=== PATIENT | female | born 1975 | race Caucasian/White ===

== ENCOUNTER 2016-10-23 15:27 | Emergency (ER) | payer MEDICAID, OTHER ==
[~2016-10-23] VITALS: Ht 162.6 cm; Wt 69.8 kg
[~2016-10-23 15:27] MED LIST: MECL-62 PO; MECL25CH PO
[2016-10-23 15:38] VITALS: BP 120/58; PULSE 73; RESP 16; TEMP 98; O2SAT 99
--- NOTE | 2016-10-23 15:49 | PD ---
HPI Chief Complaint: Musculoskeletal Complaint Time Seen by Provider: 15:40 Travel History International Travel<30 days: No Contact w/Intl Traveler<30days: No Traveled to known affect area: No History of Present Illness HPI 41-year-old left-hand dominant female presents for evaluation of left elbow pain. She first noticed it a month ago. It is an aching pain on the lateral aspect of left elbow which is worse with dorsiflexion of the left wrist, worse when lifting things. 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 She also does some weightlifting she denies any trauma. She has no other complaints at this time. History Social History Alcohol Use: Yes (OCC) Tobacco Use: No Allergies-Medications (Allergen,Severity, Reaction): Coded Allergies: Aspirin (Verified Allergy, Severe, Rash, 10/23/16) Latex (Verified Allergy, Severe, SKIN EXCORIATION, 10/23/16) Sulfa (Verified Allergy, Mild, Rash, 10/23/16) Reported Meds & Prescriptions Reported Meds & Active Scripts Active Meclizine Hcl (Meclizine HCl) 25 Mg Chw 25 Mg PO Q6H PRN Reported Meclizine Hcl (Meclizine HCl) 25 Mg Tab 25 Mg PO TID Review of Systems Musculoskeletal: Positive: Pain Neurologic: No: Paresthesia Physical Exam Narrative GENERAL: Well-developed well-nourished female in no acute distress SKIN: Warm and dry. No bruising or soft tissue swelling Extremities: Palpation lateral epicondyle left elbow. Pain with dorsiflexion against resistance at the lateral left epicondyle. There is no joint effusion. There is no bony deformity. The patient maintains full range of motion. Data Data Last Documented VS Vital Signs Date Time Temp Pulse Resp B/P Pulse Ox O2 Delivery O2 Flow Rate FiO2 10/23/16 15:38 98.0 73 16 120/58 99 MDM Medical Screen Exam Complete: Yes Emergency Medical Condition: No Narrative Course The patient's history and examination are very consistent with lateral epicondylitis. At this point in time the patient does not have any emergent medical condition. A medical screening exam was performed: At the time of evaluation the presenting medical condition was determined not to be of an emergent nature. The patient was given the option of receiving additional care, but declined. Patient was given options for additional community resources from which to obtain care. The Patient Has Been advised to seek medical attention for their presenting complaint. The patient has been advised to return to the ER at any time if an emergent condition develops. Primary Impression: Encounter for medical screening examination Thomas Reilly Oct 23, 2016 15:49
== END 2016-10-23 15:54 | disposition left against medical advice (07) ==
LOC: PHEFT 15:27
DX: M25.522 Pain in left elbow (principal)
CPT/HCPCS: 99281